=== PATIENT | female | born 1955 | race Caucasian/White ===

== ENCOUNTER 2017-07-04 09:07 | Outpatient (CLI) | payer OTHER | END 2017-07-04 17:36 | disposition home or self-care (01) | LOC: SMA 09:07 | PROVIDERS: ATTEND Family Medicine | DX: Z12.31 Encounter for screening mammogram for malignant neoplasm of breast (principal) | CPT/HCPCS: G0202 ==

== ENCOUNTER 2018-07-10 07:55 | Outpatient (CLI) | payer OTHER | END 2018-07-10 20:14 | disposition home or self-care (01) | LOC: SMA 07:55 | DX: Z12.31 Encounter for screening mammogram for malignant neoplasm of breast (principal) | CPT/HCPCS: 77067 ==

== ENCOUNTER 2019-09-10 08:10 | Outpatient (CLI) | payer OTHER | END 2019-09-10 20:54 | disposition home or self-care (01) | LOC: SMA 08:10 | PROVIDERS: ATTEND Family Medicine | DX: Z12.31 Encounter for screening mammogram for malignant neoplasm of breast (principal) | CPT/HCPCS: 77067 ==